=== PATIENT | female | born 1990 | race Hispanic/Latino ===

== ENCOUNTER 2018-02-01 14:53 | Outpatient (CLI) | payer BC | END 2018-02-01 14:54 | disposition home or self-care (01) | LOC: BICULT 14:53 | PROVIDERS: ATTEND Surgery | DX: N64.1 Fat necrosis of breast; N63.0 Unspecified lump in unspecified breast | CPT/HCPCS: 76641 ==

== ENCOUNTER 2019-01-30 07:57 | Outpatient (CLI) | payer BC ==
--- NOTE | 2019-01-30 08:53 | ULT ---
BILATERAL BREAST ULTRASOUND: Date: 01/30/19 HISTORY: 28-year-old female with multiple bilateral palpable breast masses. The patient has had a biopsy of on e of the masses on the right and eventually a surgical excision of five of the masses from the right breast. 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 The patient continues to feel masses in b oth breasts. COMPARISON: Ultrasounds from 02/01/18, 01/09/17, 07/22/16, 05/18/15, and 05/13/15. TECHNIQUE: Multiplanar Chew scale and color Doppler images were obtained in a bilateral breast ultrasound. FINDINGS: There are multiple well-circumscribed masses in both breasts. These are similar in size and appearanc e compared to the prior examination. The mass visualized on the right measures 1.5 cm in greatest dim ension and does not demonstrate suspicious shadowing. The largest mass on the left measures 2.9 cm in greatest dimension and does not demonstrate posterior shadowing. No suspicious masses or shadowing a re seen in either breast. 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 In addition, the p atandi has had five separate fibroadenomas removed in the past from the right breast. The likelihood of these being bilateral multiple fibroadenomas is extremely high and the risk that any of these lesi ons are malignant is extremely low. BI-RADS Category 2 - Benign findings. Annual screening mammography is recommended at the age of 40. I n the interval, clinical breast can be performed to evaluate for newly palpable masses amongst the ot her currently palpable fibroadenomas. This was discussed with the patient at the time of ultrasound. POS: [facility]
== END 2019-01-30 07:58 | disposition home or self-care (01) ==
LOC: BICULT 07:57
PROVIDERS: ATTEND Surgery
DX: N63.20 Unspecified lump in the left breast, unspecified quadrant (principal); N63.10 Unspecified lump in the right breast, unspecified quadrant